=== PATIENT | male | born 1995 | race Asian ===

== ENCOUNTER 2025-04-27 08:58 | Day surgery (SDC) | payer BC ==
[2025-04-24 17:54] VITALS: BMI 22.8
[2025-04-27] MEDS ORDERED: CEFAZOLIN 2 GM VIAL ONE (09:50)
[2025-04-27] MEDS ORDERED: Lidocaine 1% PF 5 ML VIAL ONE (11:02)
[2025-04-27] MEDS ORDERED: fentaNYL PF 100 MCG/2 ML SYRINGE ONE ×3 (11:02→14:11)
[2025-04-27] MEDS ORDERED: PROPOFOL 20 ML ONE (11:02)
[2025-04-27] MEDS ORDERED: Ondansetron PF 4 MG/2 ML Vial ONE (11:02)
[2025-04-27] MEDS ORDERED: PROPOFOL 200 MG/20 ML VIAL ONE (12:38)
[2025-04-27] MEDS ORDERED: HYDROmorphone 0.5 MG/0.5 ML SYRINGE ONE ×2 (14:11→14:28)
[2025-04-27] MEDS ORDERED: Ketorolac Tromethamine 30 MG (1 mL) VIAL ONE (14:28)
[2025-04-27] MEDS ORDERED: HYDROcodone/Acetaminophen 5/325 mg Tablet ONE (15:23)
== END 2025-04-27 16:30 | disposition home or self-care (01) ==
LOC: SDC 08:58
PROVIDERS: ATTEND Orthopaedic Surgery
PROC: 0SPS0JZ Removal of Synthetic Substitute from Left Hip Joint, Femoral Surface, Open Approach (ICD-10-PCS; principal; 2025-04-27)
DX: T84.84XA Pain due to internal orthopedic prosthetic devices, implants and grafts, initial encounter (principal); Y83.1 Surgical operation with implant of artificial internal device as the cause of abnormal reaction of the patient, or of later complication, without mention of misadventure at the time of the procedure
CPT/HCPCS: J0169; J0665; J1100; J1171; J1885; J2250; J2405; J2704